=== PATIENT | male | born 1965 | race African-American/Black ===

== ENCOUNTER 2017-12-29 11:24 | Emergency (ER) | payer BC, OTHER ==
[2017-12-29] MEDS ORDERED: HYDROcodone/ACETAMIN 5-325 MG* 1 TAB PO ONE (11:58)
[2017-12-29] MEDS ORDERED: Ibuprofen TAB* 600 MG PO ONE (11:58)
--- NOTE | 2017-12-29 12:56 | RAD ---
INDICATION: Dorsal and lateral right foot and ankle pain after a slip and fall injury COMPARISON: None. TECHNIQUE: 3 views of the right ankle and 3 views of the right foot were obtained. FINDINGS: There is a nondisplaced obliquely oriented fracture involving the distal left fibula. The remaining bones of the ankle are otherwise intact and appropriately aligned. There is no pathologic widening of the ankle mortise. The bones of the foot are well-corticated and appropriately aligned. There is no radiographically apparent fracture of the right foot. IMPRESSION: NONDISPLACED OBLIQUELY ORIENTED FRACTURE OF THE DISTAL RIGHT FIBULA.
--- NOTE | 2017-12-29 12:59 | RAD ---
INDICATION: Right shoulder pain after a slip and fall injury COMPARISON: None. TECHNIQUE: 3 views of the right shoulder were obtained. FINDINGS: The adequately corticated bones are in normal alignment. Joint spaces appear maintained. No fracture, dislocation or focal bony abnormality is seen. IMPRESSION: Normal radiograph of the right shoulder. If the patient's symptoms persist, follow-up imaging is recommended.
--- NOTE | 2017-12-29 13:38 | RAD ---
INDICATION: Distal right fibular fracture after a fall COMPARISON: None TECHNIQUE: 4 view radiograph of the right knee. FINDINGS: The visualized bones are well-corticated and properly aligned. The joint spaces are properly maintained. There is no radiographic evidence of joint effusion. There is no acute fracture, dislocation or other focal bony abnormality. IMPRESSION: Normal knee radiograph as described above. If the patient's symptoms persist, follow-up imaging is recommended.
[2017-12-29 14:45] VITALS: BP 139/82
--- NOTE | 2018-01-09 14:22 | ED ---
Nilda Guevara Emily, scribed for Wade Willard MD on 12/29/17 at 1159 . Complex/Multi-Sys Presentation - HPI Summary HPI Summary: This patient is a 52 year old M [facility] by with a chief complaint of R shoulder pain that began yesterday night. Pt reports pain beginning status post fall on icy steps. He fell down approximately 5 steps. Pt is unsure how he fell on his ankle, and whether or not the heavy propane tank he was carrying fell on it. Pt denies any trauma to head or neck. The patient rates the pain 10/10 in severity. Symptoms aggravated by nothing. Symptoms alleviated by nothing. Patient reports limited ROM due to pain. Patient denies numbness and tingling. - History Of Current Complaint Chief Complaint: EDExtremityUpper Time Seen by Provider: 12/29/17 11:48 Onset/Duration: Sudden Onset, Lasting Days, Still Present Timing: Constant Severity Currently: Severe Severity Initially: Severe Location: Pain At: - R shoulder and R ankle Aggravating Factor(s): Nothing Alleviating Factor(s): Nothing Associated Signs And Symptoms: Positive: Recent Trauma - Fall down 5 stairs, Other - Negative numbness and tingling - Allergies/Home Medications Allergies/Adverse Reactions: Allergies Allergy/AdvReac Type Severity Reaction Status Date / Time No Known Allergies Allergy Verified 12/29/17 11:31 PMH/Surg Hx/FS Hx/Imm Hx Previously Healthy: Yes Opthamlomology History: Denies: Hx Legally Blind EENT History: Denies: Hx Deafness Infectious Disease History: No Infectious Disease History: Denies: Traveled Outside the [place] in Last 30 Days - Family History Known Family History: Negative: Cardiac Disease, Diabetes - Social History Occupation: Employed Part-time Lives: With Family Alcohol Use: Occasionally Hx Substance Use: No Substance Use Type: Reports: None Hx Tobacco Use: No Review of Systems Negative: Fever, Chills Negative: Erythema Negative: Sore Throat Negative: Chest Pain Negative: Shortness Of Breath, Cough Negative: Abdominal Pain, Vomiting, Nausea Negative: dysuria, hematuria Positive: Other - Positive R shoulder pain and R ankle pain Negative: Rash Neurological: Other - Negative dizziness All Other Systems Reviewed And Are Negative: Yes Physical Exam - Summary Physical Exam Summary: Constitutional: Well-developed, Well-nourished, Alert. (-) Distressed Skin: Warm, Dry HENT: Normocephalic; Atraumatic Eyes: Conjunctiva normal Neck: Musculoskeletal ROM normal neck. (-) JVD, (-) Stridor, (-) Tracheal deviation Cardio: Rhythm regular, rate normal, Heart sounds normal; Intact distal pulses; The pedal pulses are 2+ and symmetric. Radial pulses are 2+ and symmetric. (-) Murmur Pulmonary/Chest wall: Effort normal. (-) Respiratory distress, (-) Wheezes, (-) Rales Abd: Soft, (-) Tenderness, (-) Distension, (-) Guarding, (-) Rebound Musculoskeletal: (-) Edema, Swollen lateral malleolus. Inversion and eversion causes pain. Casanova test is negative. Limited active range of motion limited to 90 degrees adduction of the right shoulder. No bony tenderness of the R shoulder. Tenderness to the dorsum of the foot. No limitation to passive range of motion. Lymph: (-) Cervical adenopathy Neuro: Alert, Oriented x3 Psych: Mood and affect Normal Triage Information Reviewed: Yes Vital Signs On Initial Exam: Initial Vitals Temp Pulse Resp BP Pulse Ox 96.7 F 108 18 140/78 100 12/29/17 11:28 12/29/17 11:28 12/29/17 11:28 12/29/17 11:28 12/29/17 11:28 Vital Signs Reviewed: Yes Procedures - Procedure Summary Procedure Summary: Splinting: Right ankle. Handmade, 40 cm of 4 inch orthoglass. Sugar-tong splint. Normal pre-proc neuro vasc exam. Normal post-proc neuro vasc exam. - Splinting Location: R ankle Hand-Made Type: orthoglass - 40 cm of 4 inch Splint: posterior walking Pre-Proc Neuro Vasc Exam: normal Post-Proc Neuro Vasc Exam: normal Diagnostics - Vital Signs Vital Signs Temp Pulse Resp BP Pulse Ox 12/29/17 11:28 96.7 F 108 18 140/78 100 - Laboratory Lab Statement: Any lab studies that have been ordered have been reviewed, and results considered in the medical decision making process. - Radiology Ankle XR Radiology Interpretation Completed By: Radiologist - Ankle XR reveals, per radiologist, nondisplaced obliquely oriented fracture of the distal right fibula. ED physician has reviewed this radiology report. Foot XR Radiology Interpretation Completed By: Radiologist - Foot XR reveals, per radiologist, nondisplaced obliquely oriented fracture of the distal right fibula. ED physician has reviewed this radiology report. Shoulder XR Radiology Interpretation Completed By: Radiologist - Shoulder XR reveals, per radiologist, normal radiograph of the right shoulder. If the patients symptoms persist follow-up imaging is recommented. ED physician has reviewed this radiology report. Knee XR Radiology Interpretation Completed By: Radiologist - Knee XR reveals, per radiologist, normal knee radiograph. If the patients symptoms persist, follow- up imaging is recommended. ED physician has reviewed this radiology report. Complex Multi-Symp Course/Dx Assessment/Plan: He will be going home using a wheelchair until he sees ortho. Skin is intact. Close follow up with ortho. - Diagnoses Provider Diagnoses: Injury of right rotator cuff, Fracture of distal fibula Discharge - Sign-Out/Discharge Documenting (check all that apply): Discharge - Discharge home - Discharge Plan Condition: Stable Disposition: HOME Prescriptions: HYDROcodone/ACETAMIN 5-325 MG* [[place] 5-325 TAB*] 1 tab PO Q6H PRN #12 tab MDD 4 PRN Reason: Pain - Moderate To Severe Patient Education Materials: Hydrocodone/Acetaminophen (By mouth), Ankle Fracture (ED), Rotator Cuff Injury (ED) Referrals: Vinicius Kenyon MD [Medical Doctor] - 2 Days Additional Instructions: RETURN TO THE EMERGENCY DEPARTMENT FOR NEW OR CHANGING SYMPTOMS The documentation as recorded by the Nilda perera Emily accurately reflects the service I personally performed and the decisions made by , Wade Willard MD.
== END 2017-12-29 14:44 | disposition home or self-care (01) ==
LOC: ED 11:24
DX: S82.831A Other fracture of upper and lower end of right fibula, initial encounter for closed fracture (principal); M25.511 Pain in right shoulder; W01.0XXA Fall on same level from slipping, tripping and stumbling without subsequent striking against object, initial encounter; Y92.9 Unspecified place or not applicable; S46.001A Unspecified injury of muscle(s) and tendon(s) of the rotator cuff of right shoulder, initial encounter
CPT/HCPCS: 29515; 99282; A9270-GY